=== PATIENT | female | born 1980 | race Caucasian/White ===

== ENCOUNTER 2021-10-09 19:07 | Outpatient (NON) | payer MEDICARE, SELFPAY ==
[2021-10-10 00:08] LABS: Add Urine Microscopic? YES; Appearance Urine Clear (Clear); Bilirubin Urine Negative (Negative); Blood Urine Negative (Negative); Color Urine Light Yellow (Yellow); Glucose Urine UA Negative (Negative); Ketones Urine Negative (Negative); Leukocyte Esterase Ur 1+ (Negative); Nitrate Urine Negative (Negative); Protein Urine Negative (Negative); Specific Grav Ur <= 1.005 (1.010-1.020); Urobilinogen Urine 0.2 mg/dL (0.2-1.0); pH Urine 5.5 (5.0-8.0)
[2021-10-10 00:50] LABS: Bacteria Urine 2+ /hpf; RBC Urine 0-2 /hpf (0-2); Squamous Epithelial Cell Urine None seen /hpf (Few); WBC Urine 0-3 /hpf (0-3)
== END 2021-10-09 19:08 | disposition home or self-care (01) ==
LOC: CHSLAB 19:13
PROVIDERS: PCP Internal Medicine Infectious Disease; Visit Provider Internal Medicine Infectious Disease
DX: R10.9 Unspecified abdominal pain (principal); R82.998 Other abnormal findings in urine
CPT/HCPCS: 81001; 87077; 87086; 87088; 87186

== ENCOUNTER 2021-11-15 15:58 | Outpatient (NON) | payer MEDICARE, SELFPAY ==
[2021-11-15 16:32] LABS: Hematocrit 28.4 % (35.0-49.0); Hemoglobin 8.7 g/dL (12.0-15.0); Mean Corpuscular HGB Conc 30.6 g/dL (32.0-36.0); Mean Corpuscular Hemoglobin 25.7 pg (27.0-31.0); Mean Corpuscular Volume 83.8 fL (78.0-102.0); Mean Platelet Volume 11.9 fl (9.2-11.8); Platelet Count Result 372 K/mm3 (150-420); Red Blood Count 3.39 M/mm3 (4.20-5.40); Red Cell Distribution Width 15.9 % (11.6-14.4); White Blood Count 7.9 K/mm3 (4.8-10.8)
[2021-11-15 16:41] LABS: Alanine Aminotransferase 22 U/L (14-59); Albumin Level 2.9 g/dL (3.4-5.0); Alkaline Phosphatase 101 U/L (46-116); Anion Gap 9 mmol/L (8-16); Aspartate Amino Transferase < 10 U/L (15-37); Bilirubin,Total 0.1 mg/dL (0.00-1.00); Blood Urea Nitrogen 9 mg/dL (7-18); Calcium 8.1 mg/dL (8.5-10.1); Carbon Dioxide 27 mmol/L (21-32); Chloride 104 mmol/L (98-108); Creatine Kinase 32 U/L (26-192); Estimated Glomerular Filt Rate > 60; Glucose 91 mg/dL (70-99); Osmolality Calculated 288 mOsm/kg (285-295); Potassium 3.7 mmol/L (3.5-5.1); Sodium 140 mmol/L (136-145); Total Protein 6.1 g/dL (6.4-8.2)
[2021-11-15 17:11] LABS: Band Neutrophils Percent 0 % (0-6); Basophils Absolute Manual 0.07 K/mm3 (0-0.1); Basophils Percent Manual 1 % (0-1); Eosinophils Absolute Manual 0.07 K/mm3 (0.02-0.5); Eosinophils Percent Manual 1 % (1-6); Lymphocytes Percent Manual 33 % (18-44); Monocytes Absolute Manual 0.86 K/mm3 (0.1-0.90); Monocytes Percent Manual 11 % (3-9); Neutrophils Absolute Manual 4.26 K/mm3 (1.7-7.2); Neutrophils Percent Manual 54 % (46-73); Total Cells Counted 100
[2021-11-15 17:12] LABS: Platelet Estimate Adequate (Adequate)
== END 2021-11-15 15:59 | disposition home or self-care (01) ==
LOC: CHSLAB 11-21 06:59
DX: L89.153 Pressure ulcer of sacral region, stage 3 (principal)
CPT/HCPCS: 80053; 82550; 85025

== ENCOUNTER 2021-11-23 13:23 | Outpatient (NON) | payer MEDICARE, SELFPAY ==
[2021-11-23 13:54] LABS: Basophils Absolute Auto 0.02 K/mm3 (0.00-0.10); Basophils Percent Auto 0.4 % (0.0-1.0); Eosinophils Absolute Auto 0.15 K/mm3 (0.02-0.50); Eosinophils Percent Auto 2.7 % (1.0-6.0); Hemoglobin 9.5 g/dL (12.0-15.0); Immature Granulocyte Absolute 0.02 K/mm3 (0.00-0.00); Immature Granulocyte Percent A 0.4 % (0.0-0.0); Lymphocytes Absolute Auto 1.79 K/mm3 (1.10-4.50); Lymphocytes Percent Auto 32.2 % (18.0-42.0); Mean Corpuscular HGB Conc 30.6 g/dL (32.0-36.0); Mean Corpuscular Hemoglobin 25.7 pg (27.0-31.0); Mean Platelet Volume 12.1 fl (9.2-11.8); Monocytes Absolute Auto 0.72 K/mm3 (0.10-0.90); Monocytes Percent Auto 12.9 % (2.0-11.0); Neutrophils Absolute Auto 2.9 K/mm3 (1.7-7.2); Neutrophils Percent Auto 51.4 % (50.0-70.0); Platelet Count Result 301 K/mm3 (150-420); Red Blood Count 3.69 M/mm3 (4.20-5.40); Red Cell Distribution Width 15.4 % (11.6-14.4); White Blood Count 5.6 K/mm3 (4.8-10.8)
[2021-11-23 14:25] LABS: Alanine Aminotransferase 26 U/L (14-59); Albumin Level 3.2 g/dL (3.4-5.0); Alkaline Phosphatase 95 U/L (46-116); Anion Gap 8 mmol/L (8-16); Aspartate Amino Transferase 22 U/L (15-37); Bilirubin,Total 0.2 mg/dL (0.00-1.00); Blood Urea Nitrogen 10 mg/dL (7-18); Calcium 8.5 mg/dL (8.5-10.1); Carbon Dioxide 26 mmol/L (21-32); Chloride 102 mmol/L (98-108); Creatine Kinase 36 U/L (26-192); Estimated Glomerular Filt Rate > 60; Glucose 102 mg/dL (70-99); Osmolality Calculated 281 mOsm/kg (285-295); Potassium 3.2 mmol/L (3.5-5.1); Sodium 136 mmol/L (136-145); Total Protein 7.1 g/dL (6.4-8.2)
== END 2021-11-23 13:24 | disposition home or self-care (01) ==
DX: L89.153 Pressure ulcer of sacral region, stage 3 (principal)
CPT/HCPCS: 36415; 80053; 82550; 85025

== ENCOUNTER 2021-11-29 16:34 | Outpatient (NON) | payer MEDICARE, SELFPAY ==
[2021-11-29 16:57] LABS: Basophils Absolute Auto 0.04 K/mm3 (0.00-0.10); Basophils Percent Auto 0.7 % (0.0-1.0); Eosinophils Percent Auto 3.3 % (1.0-6.0); Hematocrit 32.3 % (35.0-49.0); Immature Granulocyte Absolute 0.01 K/mm3 (0.00-0.00); Immature Granulocyte Percent A 0.2 % (0.0-0.0); Lymphocytes Absolute Auto 2.02 K/mm3 (1.10-4.50); Lymphocytes Percent Auto 33.8 % (18.0-42.0); Mean Corpuscular Hemoglobin 25.3 pg (27.0-31.0); Mean Corpuscular Volume 81.6 fL (78.0-102.0); Mean Platelet Volume 12.9 fl (9.2-11.8); Monocytes Absolute Auto 0.76 K/mm3 (0.10-0.90); Monocytes Percent Auto 12.7 % (2.0-11.0); Neutrophils Percent Auto 49.3 % (50.0-70.0); Platelet Count Result 232 K/mm3 (150-420); Red Blood Count 3.96 M/mm3 (4.20-5.40); Red Cell Distribution Width 15.3 % (11.6-14.4)
[2021-11-29 17:06] LABS: Alanine Aminotransferase 21 U/L (14-59); Albumin Level 3.2 g/dL (3.4-5.0); Alkaline Phosphatase 95 U/L (46-116); Anion Gap 6 mmol/L (8-16); Aspartate Amino Transferase 24 U/L (15-37); Bilirubin,Total 0.2 mg/dL (0.00-1.00); Blood Urea Nitrogen 6 mg/dL (7-18); Calcium 8.4 mg/dL (8.5-10.1); Carbon Dioxide 28 mmol/L (21-32); Chloride 105 mmol/L (98-108); Creatine Kinase 45 U/L (26-192); Estimated Glomerular Filt Rate > 60; Glucose 84 mg/dL (70-99); Osmolality Calculated 284 mOsm/kg (285-295); Potassium 4.4 mmol/L (3.5-5.1); Sodium 139 mmol/L (136-145); Total Protein 7.1 g/dL (6.4-8.2)
== END 2021-11-29 16:35 | disposition home or self-care (01) ==
DX: L89.153 Pressure ulcer of sacral region, stage 3 (principal)
CPT/HCPCS: 80053; 82550; 85025

== ENCOUNTER 2021-12-04 17:18 | Outpatient (NON) | payer MEDICARE, SELFPAY ==
[2021-12-04 18:21] LABS: Hematocrit 33.3 % (35.0-49.0); Hemoglobin 10.5 g/dL (12.0-15.0); Mean Corpuscular HGB Conc 31.5 g/dL (32.0-36.0); Mean Corpuscular Hemoglobin 26.2 pg (27.0-31.0); Mean Platelet Volume 12.6 fl (9.2-11.8); Platelet Count Result 221 K/mm3 (150-420); Red Blood Count 4.01 M/mm3 (4.20-5.40); Red Cell Distribution Width 15.7 % (11.6-14.4); White Blood Count 7.5 K/mm3 (4.8-10.8)
[2021-12-04 18:33] LABS: Alanine Aminotransferase 21 U/L (14-59); Albumin Level 3.3 g/dL (3.4-5.0); Alkaline Phosphatase 88 U/L (46-116); Anion Gap 6 mmol/L (8-16); Aspartate Amino Transferase 21 U/L (15-37); Bilirubin,Total 0.2 mg/dL (0.00-1.00); Blood Urea Nitrogen 7 mg/dL (7-18); Calcium 8.7 mg/dL (8.5-10.1); Carbon Dioxide 27 mmol/L (21-32); Chloride 105 mmol/L (98-108); Creatine Kinase 43 U/L (26-192); Estimated Glomerular Filt Rate > 60; Glucose 88 mg/dL (70-99); Osmolality Calculated 283 mOsm/kg (285-295); Potassium 4.1 mmol/L (3.5-5.1); Sodium 138 mmol/L (136-145); Total Protein 7.3 g/dL (6.4-8.2)
[2021-12-04 18:49] LABS: Band Neutrophils Percent 0 % (0-6); Basophils Absolute Manual 0.15 K/mm3 (0-0.1); Basophils Percent Manual 2 % (0-1); Eosinophils Absolute Manual 0.22 K/mm3 (0.02-0.5); Eosinophils Percent Manual 3 % (1-6); Lymphocytes Absolute Manual 2.55 K/mm3 (1.1-4.5); Lymphocytes Percent Manual 34 % (18-44); Monocytes Absolute Manual 1.12 K/mm3 (0.1-0.90); Monocytes Percent Manual 15 % (3-9); Neutrophils Absolute Manual 3.45 K/mm3 (1.7-7.2); Neutrophils Percent Manual 46 % (46-73); Platelet Estimate Adequate (Adequate)
== END 2021-12-04 17:19 | disposition home or self-care (01) ==
LOC: CHSLAB 17:22
DX: L89.153 Pressure ulcer of sacral region, stage 3 (principal); Z79.2 Long term (current) use of antibiotics
CPT/HCPCS: 36415; 80053; 82550; 85025

== ENCOUNTER 2022-03-16 13:15 | Outpatient (NON) | payer MEDICARE, SELFPAY ==
[2022-03-16 13:25] LABS: Appearance Urine Clear (Clear); Bilirubin Urine Negative (Negative); Color Urine Light Yellow (Yellow); Glucose Urine UA Negative (Negative); Ketones Urine Negative (Negative); Leukocyte Esterase Ur 1+ (Negative); Nitrate Urine Negative (Negative); Protein Urine Negative (Negative); Specific Grav Ur <= 1.005 (1.010-1.020); Urobilinogen Urine 0.2 mg/dL (0.2-1.0)
[2022-03-16 13:32] LABS: Add Urine Microscopic? YES; Bacteria Urine Trace /hpf; Blood Urine Trace-Intact (Negative); RBC Urine None seen /hpf (0-2); Squamous Epithelial Cell Urine Rare /hpf (Few); WBC Urine 0-3 /hpf (0-3)
== END 2022-03-16 13:16 | disposition home or self-care (01) ==
LOC: CHSLAB 13:17
PROVIDERS: Visit Provider Internal Medicine Infectious Disease
DX: N39.0 Urinary tract infection, site not specified (principal)
CPT/HCPCS: 81001; 87077; 87086; 87088; 87186

== ENCOUNTER 2023-02-22 18:40 | Outpatient (NON) | payer MEDICARE, SELFPAY ==
[2023-02-22 19:30] LABS: Appearance Urine Clear (Clear); Bilirubin Urine Negative (Negative); Blood Urine Negative (Negative); Color Urine Light Yellow (Yellow); Glucose Urine UA Negative (Negative); Ketones Urine Negative (Negative); Leukocyte Esterase Ur 3+ (Negative); Nitrate Urine Negative (Negative); Protein Urine Negative (Negative); Specific Grav Ur <= 1.005 (1.010-1.020); Urobilinogen Urine 0.2 mg/dL (0.2-1.0)
[2023-02-22 19:36] LABS: Add Urine Microscopic? YES; RBC Urine 0-2 /hpf (0-2); Squamous Epithelial Cell Urine Few /hpf (Few)
[2023-02-22 19:37] LABS: Bacteria Urine 1+ /hpf
== END 2023-02-22 18:41 | disposition home or self-care (01) ==
LOC: CHSLAB 18:50
PROVIDERS: Visit Provider Internal Medicine Infectious Disease
DX: R10.9 Unspecified abdominal pain (principal); R82.90 Unspecified abnormal findings in urine
CPT/HCPCS: 81001; 87077; 87086; 87088; 87186